=== PATIENT | female | born 1975 | race African-American/Black ===

== ENCOUNTER 2017-03-29 09:55 | Day surgery (SDC) | payer OTHER ==
[~2017-03-29] VITALS: Ht 165.1 cm; Wt 87.6 kg
[2017-03-29] VITALS (18 sets, daily range): BP systolic 96–116; BP diastolic 57–80; PULSE 70–104; RESP 13–32; Ht 165.1 cm; Wt 87.6 kg
[~2017-03-29 09:55] MED LIST: CEFAZOLIN 1 GM INJ ONE; LIDOCAINE 1%/EPI (MDV) 20 ML INJ INJ ONE
--- NOTE | 2017-03-29 11:41 | HPN ---
Date/Time of Note Date/Time of Note DATE: 03/29/17 TIME: 11:41 Interval H&P Admission Note Pt. seen H&P reviewed: No system changes MAXIMILIANO HU M.D. Mar 29, 2017 11:41
[2017-03-29] MEDS ORDERED: COCAINE 4% 4 ML TOP ONE ×2 (11:48→12:37)
[2017-03-29] MEDS ORDERED: BUPIVACAINE 0.25%/EPI (SDV) 30 ML INJ ONE (11:48)
[2017-03-29] MEDS ORDERED: BACITRACIN/POLYMYXIN 28.35 GM OINT TOP ONE (11:49)
[2017-03-29] MEDS ORDERED: NEOSTIGMINE 3 MG/3 ML SYRINGE ONE (12:12)
[2017-03-29] MEDS ORDERED: SUCCINYLCHOLINE CHLORIDE 100 MG/5 ML SYG IV ONE (12:12)
[2017-03-29] MEDS ORDERED: ROCURONIUM 50 MG INJ ONE (12:12)
[2017-03-29] MEDS ORDERED: GLYCOPYRROLATE 0.4 MG INJ ONE (12:12)
[2017-03-29] MEDS ORDERED: LIDOCAINE 2% (SDV) 5 ML INJ ONE (12:12)
[2017-03-29] MEDS ORDERED: MEPERIDINE 100 MG INJ ONE (12:12)
[2017-03-29] MEDS ORDERED: PROPOFOL 20 ML ONE (12:12)
[2017-03-29] MEDS ORDERED: ONDANSETRON 4 MG INJ ONE (12:15)
[2017-03-29] MEDS ORDERED: METOCLOPRAMIDE 10 MG INJ ONE (12:15)
[2017-03-29] MEDS ORDERED: BUPIVACAINE 0.25%/EPI (SDV) 30 ML INJ INJ ONE (12:37)
[2017-03-29] MEDS ORDERED: ATROPINE 1 MG/10 ML SYRINGE ONE (12:39)
--- NOTE | 2017-03-29 13:25 | PDOCDIS ---
Discharge Instructions DIAGNOSIS Discharge Diagnosis: SEPTAL DEVIATION CONDITION Patient Condition: Good HOME CARE INSTRUCTIONS: Diet Instructions: Regular ACTIVITY: Activity Restrictions: Slowly Increase Activity Rest between Activity Avoid heavy lifting Avoid Heavy Housework FOLLOW UP/APPOINTMENTS Appointments [facility] IN 7 TO 10 DAYS. SCHOOL/WORK RELEASE May return to School/Work on: Apr 04, 2017 May return to School/Work with: No Restrictions MAXIMILIANO HU M.D. Mar 29, 2017 13:25
--- NOTE | 2017-03-29 14:31 | OPR ---
DATE OF OPERATION: 03/29/2017 SURGEON: Gen Dwyer MD PREOPERATIVE DIAGNOSES: 1. Septal deviation. 2. Bilateral nasal turbinate tissue hypertrophy. 3. Left nasal elyse bullosa. 4. Chronic nasal obstruction. 5. Chronic sinusitis. POSTOPERATIVE DIAGNOSES: 1. Septal deviation. 2. Bilateral nasal turbinate tissue hypertrophy. 3. Left nasal elyse bullosa. 4. Chronic nasal obstruction. 5. Chronic sinusitis. OPERATION PERFORMED: 1. A septoplasty using submucosal resection technique. 2. Bilateral laser turbinoplasty procedure using a 532 nanometer KTP laser using submucosal resecti on technique. 3. Removal of left elyse bullosa lesion. 4. Nasal endoscopy using a 0 degree Sinuscope. 5. Multiple sinusotomies. ESTIMATED BLOOD LOSS: Less than 10 mL. COMPLICATIONS: None. SPECIMENS SENT TO LAB: Septal cartilage and bone for gross microscopic evaluation. FINDINGS DURING PROCEDURE: Bilateral nasal turbinate tissue hypertrophy with papillomatous degenera tive mucosal changes seen. The patient was also found to have left nasal septal deviation with encr oachment on the left nasal cavity. The patient was also found to have chronic sinusitis with a mode rate-sized left elyse bullosa lesion involving the middle turbinate area. No signs of malignancies or tumors present during the procedure. ANESTHESIA: General anesthesia with orotracheal tube intubation. The patient also had topical coca ine 4% using 4 mL. The patient also had 20 mL of Marcaine 0.25% with epinephrine 1:200,000 using a 25-gauge 1-1/2 needle. The patient was also given Ancef before the case was begun. DISPOSITION: The patient left the operating room in good and satisfactory condition. DESCRIPTION OF PROCEDURE: The patient was taken to the operating room, placed on the surgical table in supine position, made comfortable by the anesthesiologist, Dr. Mata. The patient had EKG, satura tion monitoring and blood pressure cuff applied. The patient had a previously started IV in the pre induction area which was infusing well. The patient was then given a mask with Dr. Mata and placed u nder general anesthesia with mask ventilatory support. The airway was then maintained and controlle d as the patient was given IV medications for general anesthesia. At this point, the patient was gan ccessfully orotracheally intubated with orotracheal cuffed tube without any complications. The tube was taped to the left corner of the mouth. The eyes were taped for protection as the table was lef t in the midline. At this point, the vital signs noted to be stable as the patient was draped out i n the usual sterile fashion using a split sheet. At this point, a brief time-out with patient ident ification and procedures entertained, and all were in agreement. Wet towels were placed around the nasal area to protect it for laser use. At this point, the nasal cavity was then inspected and the patient was found to have swollen inferior and middle turbinates. At this point, 0.0.25% Marcaine w ith epinephrine 1:200,000 injected into the nose using a 25-gauge 1-2 needle to the inferior and m iddle turbinate areas bilaterally. There was also injection of the septum and the nasal spine area. The septum itself was also injected with this solution. At this point, the cocaine was applied wi th cottonoids to the anterior ethmoid bilaterally and behind the middle turbinate area. At this poi nt, the personnel in the operating room were asked to place safety goggles on for their protection. The curved handpiece was used with suction attachment and the cottonoids were removed from the nasa l cavity. At this point, using a foot activator, the KTP 532 nanometer laser was then applied to th e left inferior turbinate. This was done using a piercing technique to the submucosal space in a po sterior direction. A laser was activated. The mucosa was noted to shrink in size as the smoke was removed with the evacuator. The inferior turbinate in the anterior two-thirds margin was reduced in the submucosal space. It was outfractured towards the medial wall of the maxillary sinus with a na trevon speculum. At this point, the middle turbinate was then brought into view on the left side and a elyse bullosa lesion was seen. The laser was then introduced into this area using the same stabbi ng technique in the submucosal space. The elyse bullosa was then removed by crunching it with a na trevon speculum flat against the medial wall of the maxillary sinus. This gave greater patency of the nasal cavity. The right side of the nose was done in a similar fashion using laser submucosal resec tion applications as the inferior turbinate on the right side as well as the middle turbinate were r educed in size. At this point, the nasal cavity was more open as a frozen section was then used to remove blood and mucus from the nasopharynx. At this point, a 0 degree scope was then introduced in to the nasal cavity on the left and right side with evaluation of great patency with the ethmoid and the ethmoid recess region not to see any polyps or lesions seen in the area. The scope was then ad vanced to the right side of the nose. There too, there were no lesions seen in the area. There was papillomatous degenerative mucosal change of the nasal cavity as the scope was removed. At this po int, a septoplasty procedure was performed making a hemitransfixion incision on the left side of the nose and the anterior septal margin. This incision was carried down to the perichondrium on the le ft side. A Chantel elevator was then used to elevate a mucoperichondrial flap on the left side of th e septal cartilage. The cartilage was then completely incised to the right side with care not to da mage the right mucosal covering. The Chantel elevator was advanced around the cartilage and lifting of a right mucoperichondrial layer was achieved without tear of the flap. A Anand forceps was t hen used to remove the cartilage from between the 2 flaps created in a posterior direction. This al lowed the septum to swing back towards the midline. At this point, the hemitransfixion incision was closed with 4-0 Vicryl suture in simple interrupted fashion as plication sutures were also applied to the flaps to keep them in the midline to prevent hematoma formation. At this point, the left and right maxillary sinuses were then evaluated with the Sinuscope using a 0 degree. There were chroni c changes of the mucosa as the scope was entered into the left and right maxillary sinus through sin usotomies. The sphenoid sinus was also evaluated too and was found to have chronic changes with no polyps seen in the intrasinus cavities. At this point, bacitracin ointment was applied to the nose as a packing as a mustache dressing was placed beneath the nose. This ended the procedure. Sponge count and instrument correct x3. There were no complications during the procedure. The patient was then extubated in the operating room and taken to recovery room and is currently doing well and exp ects to be discharged home unless postoperative complications develop. The history is as follows: Mrs. John Lee is a 41-year-old female who has a history of chronic nasal obstruction treated with multiple topical nasal steroids as well as decongestants. Patient continues to have chronic n matt obstruction and on CT scan evaluation and found to have a large left middle turbinate elyse bu llosa. The patient was also found to have bilateral swelling of the inferior turbinates with a left nasal septal deflection. The patient is currently scheduled for nasal procedures which will includ e a septoplasty, nasal endoscopy as well as bilateral laser turbinoplasty procedure. The patient al so had removal of her left elyse bullosa lesion as well. The patient understands the risks, benefi ts and alternatives of today's procedure may include infections, bleeding, scar formation, possible intraocular and intracranial complications that occur during the procedure. She has signed a consen t once her questions were answered. Dictated By: GEN COELHO/JENNA Conf#: [id number] DID#: [id number]
== END 2017-03-29 17:30 | disposition home or self-care (01) ==
LOC: SDS 09:55 → EDSEX 12:00 → SDS 17:30
PROVIDERS: ATTEND Otolaryngology Otolaryngology/Facial Plastic Surgery
DX: J34.2 Deviated nasal septum (principal); J34.3 Hypertrophy of nasal turbinates; J32.9 Chronic sinusitis, unspecified; J34.89 Other specified disorders of nose and nasal sinuses
CPT/HCPCS: 30140; 30520; 31240; 88300; J0461; J0690; J2175; J2405; J2710; J2765; J7999; Z7512; Z7610